=== PATIENT | male | born 1990 | race Caucasian/White ===

== ENCOUNTER 2016-08-30 14:20 | Emergency (ER) | payer SELFPAY ==
[2016-08-30] MEDS ORDERED: ONDANSETRON 4 MG TAB.RAPDIS SL ONE (15:00)
[2016-08-30] MEDS ORDERED: ONDANSETRON 4 MG TAB.RAPDIS ONE (15:12)
== END 2016-08-30 15:19 | disposition home or self-care (01) ==
LOC: ER 14:22
DX: H60.93 Unspecified otitis externa, bilateral (principal); J06.9 Acute upper respiratory infection, unspecified
CPT/HCPCS: 99283; Q0162